=== PATIENT | male | born 1970 | race Caucasian/White ===

== ENCOUNTER 2018-07-25 08:00 | Day surgery (SDC) | payer BC ==
[2018-07-20 12:44] VITALS: BMI 27.1
[~2018-07-25 08:00] MED LIST: LACTATED RINGERS 1,000 ML IV SCH
[2018-07-25 08:20] VITALS: RESP 16; TEMP 97.4
[2018-07-25] MEDS ORDERED: PROPOFOL 10 MG/ML 20 ML VIAL IV ONE (08:49)
[2018-07-25 09:13] VITALS: PULSE 53
--- NOTE | 2018-07-25 09:15 | P.PCN ---
Date of Procedure: 07/25/18 Procedure(s) Performed: Procedure: Total colonoscopy. Preoperative diagnosis: Screening for neoplasia. Postoperative diagnosis: Exam within normal limits. Preparation: HalfLytely prep. Sedation: Was provided by anesthesia. Brief clinical history: The patient is a 48-year-old male who is scheduled for this evaluation for screening for neoplasia age being his risk factor. He has no family history of colon cancer. The patient has no abdominal complaints, bleeding or anemia. Procedure: With the patient on his left lateral decubitus position and after informed consent and adequate sedation, the perianal area was inspected and it did not show any fissures or fistulas. There were no masses felt on digital rectal examination. The Olympus CFQ 160L video colonoscope was then inserted in the rectum in the usual fashion and advanced to the cecum. The preparation was good. The mucosa appeared healthy. No polyps or tumors were seen or any obvious diverticular disease or other pathology. I retroflexed the endoscope in the rectum before the endoscope was withdrawn. Low-grade internal hemorrhoids were noted but there was no evidence of bleeding. The patient tolerated the procedure well. Plan: The patient was reassured. Discussed dietary measures and local care for hemorrhoids. He will follow-up with you as planned and I recommended repeat exam in 10 years.
[2018-07-25 09:29] VITALS: BP 111/75
== END 2018-07-25 09:58 | disposition home or self-care (01) ==
LOC: ORWHC2ENDO 08:00
DX: Z12.11 Encounter for screening for malignant neoplasm of colon (principal); K64.8 Other hemorrhoids; I10 Essential (primary) hypertension; Z79.899 Other long term (current) drug therapy
CPT/HCPCS: 45378; J2704

== ENCOUNTER → 2018-07-25 | Day surgery (SDC) | payer BC | LOC: ORWHC2ENDO 07:41 | PROVIDERS: ATTEND Internal Medicine Gastroenterology | DX: Z53.9 Procedure and treatment not carried out, unspecified reason (principal) ==

== ENCOUNTER → 2020-12-19 | Outpatient (CLI) | payer BC ==
--- NOTE | 2020-12-19 09:56 | FL ---
EXAMINATION TYPE: FL UGI w esophagus DATE OF EXAM: 12/19/2020 COMPARISON: None HISTORY: Dysphasia TECHNIQUE: Double air-contrast technique is utilized to evaluate the esophagus in the upper gastroint estinal tract. FINDINGS: Fluoroscopy time: 1 minute 49 seconds Images: 22 Esophagus dilates to normal caliber has normal contour to the gastroesophageal junction. Gastroesopha geal junction opens to normal caliber. Schatzki's ring is identified. A small self reducing sliding t ype hiatal hernia is present. A few tertiary contractions are evident within the distal esophagus com patible with presbyesophagus. There is incomplete stripping the esophageal bolus the horizontal drink ing position. Small secondary contraction was evident. Fundus body and antrum of the stomach visualized are unremarkable. No intraluminal or extramural defe ct is evident. Barium readily empties into the normally positioned duodenal cap and sweep. IMPRESSION: 1. Presbyesophagus. 2. Incidental note is made of some residuals within the hypopharynx with swallowing. Consider modifie d barium swallow for additional evaluation. 3. Small self reducing sliding type hiatal hernia.
== END | disposition home or self-care (01) ==
LOC: RADUSWWP 07:40
PROVIDERS: ATTEND Family Medicine
DX: K44.9 Diaphragmatic hernia without obstruction or gangrene (principal); K22.8 Other specified diseases of esophagus
CPT/HCPCS: 74240

== ENCOUNTER → 2021-01-01 | Outpatient (CLI) | payer BC ==
--- NOTE | 2021-01-01 15:29 | FL ---
EXAMINATION TYPE: FL barium swallow w video DATE OF EXAM: 01/01/2021 MODIFIED SWALLOW / DEGLUTITION STUDY CLINICAL HISTORY: Dysphagia. TECHNIQUE: Deglutition study is performed utilizing thin liquid barium, honey and nectar thick liqui d barium, barium thick applesauce, and barium coated cracker. COMPARISON: None. FINDINGS: The oral and pharyngeal phases show satisfactory initiation and propagation with all modali ties tested. Normal mastication is seen with solid modalities tested. There is no evidence of penet ration or aspiration with any modality tested. No significant pharyngeal residue was appreciated. 57 seconds of fluoroscopy time provided. No images submitted. IMPRESSION: 1. Normal deglutition study. Please refer to speech therapist notes for further details if necessary . 2. Mild thickening of the prevertebral soft tissue structures which could be technical. Consider foll ow-up CT scan of the neck for further evaluation.
== END | disposition home or self-care (01) ==
LOC: RADFLMAIN 10:42
PROVIDERS: ATTEND Family Medicine
DX: R13.10 Dysphagia, unspecified (principal)
CPT/HCPCS: 74230

== ENCOUNTER 2021-02-03 07:22 | Day surgery (SDC) | payer BC ==
[2021-01-29 12:52] VITALS: BMI 27.9
[2021-02-03 07:43] VITALS: RESP 18; TEMP 96.2
[2021-02-03] MEDS ORDERED: LIDOCAINE 1% INJ 10MG/ML (20 ML MDV) ONE (07:59)
[2021-02-03] MEDS ORDERED: PROPOFOL 10 MG/ML 20 ML VIAL IV ONE (07:59)
[2021-02-03] MEDS ORDERED: LACTATED RINGERS 1,000 ML IV ONE (08:14)
--- NOTE | 2021-02-03 08:17 | P.PCN ---
Date of Procedure: 02/03/21 Description of Procedure: BRIEF HISTORY: Patient is a 50-year-old male presented for outpatient EGD for evaluation of symptoms of esophageal dysphagia. No prior EGD reported. He does report swallow evaluation which was normal past. Currently not on any PPI therapy. PROCEDURE PERFORMED: Esophagogastroduodenoscopy with biopsy. PREOPERATIVE DIAGNOSIS: Dysphagia/esophageal dysphagia. ESTIMATED BLOOD LOSS: Minimal. IV sedation per anesthesia. PROCEDURE: After informed consent was obtained, the patient was brought into the endoscopy unit. IV sedation was administered by Anesthesia under continuous monitoring. Initially the Olympus GIF-190 video endoscope was inserted into the mouth. Esophagus intubated without any difficulty. It was gradually advanced into the stomach and duodenum and carefully examined. The bulb and the second part of the duodenum appeared normal, with biopsies taken. The scope at this time was withdrawn to the stomach, adequately insufflated with air, and upon careful examination, mucosa of the antrum, body, cardia and the fundus appeared normal, except for some mild scattered erythema in the antrum and body suggestive of mild gastritis with biopsies taken. The scope was then withdrawn into the esophagus. The GE junction was located at 40 cm from the incisorsand biopsied to rule out reflux esophagitis. A small 1 cm hiatal hernia was noted. The esophagus appeared normal, with mid esophageal biopsies taken to rule out eosinophilic esophagitis. There were no erosions or ulcerations seen and the patient tolerated the procedure well. IMPRESSION: 1. Mild gastritis. 2. Biopsies of the duodenum, antrum and body, GE junction and mid esophagus. RECOMMENDATIONS: The findings of this examination were discussed with the patient and his family. Okay to resume diet. Okay to resume medications. Recommend the initiation of trial of omeprazole 20 mg daily OTC to be taken 30 minutes prior to meals for 6- 8 weeks which has been discussed with the patient length. Await pathology from biopsies.
[2021-02-03 08:40] VITALS: BP 118/83; PULSE 57
== END 2021-02-03 08:59 | disposition home or self-care (01) ==
LOC: ORWHC2ENDO 07:22
PROVIDERS: ATTEND Internal Medicine
DX: R13.14 Dysphagia, pharyngoesophageal phase (principal); K21.00 Gastro-esophageal reflux disease with esophagitis, without bleeding; K29.70 Gastritis, unspecified, without bleeding; I10 Essential (primary) hypertension; Z79.899 Other long term (current) drug therapy
CPT/HCPCS: 88305; 43239; J2001; J2704